=== PATIENT | male | born 1980 | race Caucasian/White ===

== ENCOUNTER 2017-07-28 19:24 | Emergency (ER) | payer OTHER ==
[~2017-07-28] VITALS: Ht 175.3 cm; Wt 112.7 kg
[2017-07-28] MEDS ORDERED: DULA0.75 SQ (19:41)
[2017-07-28] MEDS ORDERED: AMLO-512 PO (19:41)
[2017-07-28] MEDS ORDERED: ARIP15TA2 PO (19:42)
[2017-07-28] MEDS ORDERED: INSLAN SQ (19:42)
[2017-07-28] MEDS ORDERED: ATOR40TA28 PO (19:42)
[2017-07-28] MEDS ORDERED: HALO5 PO (19:42)
[2017-07-28] MEDS ORDERED: TRAZ-144 PO (19:42)
[2017-07-28] MEDS ORDERED: VITAD1000 PO (19:42)
[2017-07-28] MEDS ORDERED: LAMO100 PO (19:42)
[2017-07-28] MEDS ORDERED: LORA2TAB2 PO (19:42)
[2017-07-28] MEDS ORDERED: INSULIN GLARGINE,HUM.REC.ANLOG 100 UNITS/ML SQ ONE (19:45)
[2017-07-28] MEDS ORDERED: SODIUM CHLORIDE 0.9% 1,000 ML IV ONE (19:45)
[2017-07-28 20:23] LABS: BASOPHILS % (AUTO) 1.6 % (0.0-2.0); EOSINOPHILS % (AUTO) 1.7 % (1.0-6.0); HEMATOCRIT 35.5 % (41-53); HEMOGLOBIN 12.4 g/dL (13.5-17.5); LYMPHOCYTES # (AUTO) 2.1 K/uL (1.0-4.8); MEAN CORPUSCULAR HEMOGLOBIN 29.8 pg (26.0-34.0); MEAN CORPUSCULAR HGB CONC 34.9 G/dL (31.0-37.0); MEAN CORPUSCULAR VOLUME 85 fL (80-100); MONOCYTES # (AUTO) 0.7 K/uL (0.1-1.0); NEUTROPHILS # (AUTO) 8.6 K/uL (1.8-7.7); NEUTROPHILS % (AUTO) 72.7 % (40.0-70.0); PLATELET COUNT (AUTO) 269 K/uL (150-450); RED BLOOD CELL COUNT(AUTO) 4.16 MIL/uL (4.50-5.90); RED CELL DISTRIBUTION WIDTH 13.8 % (11.5-14.5)
[2017-07-28 20:38] LABS: ALBUMIN 2.3 g/dL (3.4-5.0); BILIRUBIN,TOTAL 0.1 mg/dL (0.1-1.0); CALCIUM, TOTAL 8.2 mg/dL (8.8-10.5); CREATININE 1.86 mg/dL (0.60-1.30); POTASSIUM 3.6 mmol/L (3.5-5.1)
[2017-07-28 20:45] LABS: PLATELET MORPHOLOGY COMMENT NORMAL
[2017-07-28 20:54] VITALS: BP 183/111
[2017-07-28 20:57] LABS: GLUCOSE,POINT OF CARE 403 MG/DL (70-110)
[2017-07-28] MEDS ORDERED: INSULIN REGULAR, HUMAN 100 UNITS/ML IVP ONE (21:00)
== END 2017-07-28 21:19 | disposition home or self-care (01) ==
LOC: EMS 19:31
DX: E11.65 Type 2 diabetes mellitus with hyperglycemia (principal); M79.89 Other specified soft tissue disorders; M71.21 Synovial cyst of popliteal space [Baker], right knee; I12.9 Hypertensive chronic kidney disease with stage 1 through stage 4 chronic kidney disease, or unspecified chronic kidney disease; E11.22 Type 2 diabetes mellitus with diabetic chronic kidney disease; N18.9 Chronic kidney disease, unspecified; Z79.4 Long term (current) use of insulin
CPT/HCPCS: 36415; 73562; 80053; 82962; 85025; 93971; 96360; 96372; 99285; J1815; J7030